=== PATIENT | female | born 1995 | race Caucasian/White ===

== ENCOUNTER 2016-11-12 04:01 | Emergency (ER) | payer SELFPAY ==
[2016-11-12] MEDS ORDERED: Ketorolac Tromethamine 30 MG/ML VIAL ONE (04:28)
[2016-11-12] MEDS ORDERED: Ondansetron HCl/PF 4 MG/2 ML Vial ONE (04:28)
[2016-11-12 04:57] LABS: Amphetamine Not Detected (NotDetected); Barbiturates Screen Not Detected (NotDetected); Benzodiazepine Screen Not Detected (NotDetected); Cocaine Metabolite Screen Not Detected (NotDetected); Medtox Control Line Valid? VALID (VALID); Methadone Not Detected (NotDetected); Methamphetamine Not Detected (NotDetected); Opiate Screen Not Detected (NotDetected); Oxycodone Screen Not Detected (NotDetected); Phencyclidine (PCP) Not Detected (NotDetected); Pregnancy Test - Urine (BHCG) Negative (Negative); Pregu Control Background? CLEAR/WHITE (CLR/WHITE); Pregu Control Bar Appear? YES (CONTROL BAR); THC/Cannabinoid Screen Not Detected (NotDetected); Tricyclic Screen Not Detected (NotDetected)
[2016-11-12 04:58] LABS: Bilirubin Negative (Negative); Blood, Urine Negative (Negative); Clarity Cloudy (Clear); Glucose, Urine (Dipstick) Negative (Negative); Leukocyte Small (Negative); Nitrite Negative (Negative); Protein, Urine (Dipstick) Negative (Neg-Trace); Urobilinogen 0.2 mg/dL (0.2-1.0); pH, Urine 5.5 (5.0-9.0)
[2016-11-12 04:59] LABS: Bacteria/HPF 3+ HPF (None Seen); RBC/HPF 0-3 HPF (0-3); WBC/HPF 21-50 HPF (0-3); Yeast-All Forms 3+ HPF (None Seen)
[2016-11-12] MEDS ORDERED: cefTRIAXone\\ROCEPHIN 1 GM VIAL ONE (05:10)
[2016-11-12 05:13] LABS: #Basophils 0.1 thou/uL (0.0-0.2); #Eosinphils 0.2 thou/uL (0.0-0.7); #Monocytes 0.7 thou/uL (0.11-0.59); #Neutrophils 10.8 thou/uL (1.40-6.50); %Basophils 0.8 % (0.0-1.0); %Eosinophils 1.1 % (0.0-10.0); %Lymphocytes 20.5 % (21.0-51.0); %Monocytes 4.6 % (0.0-10.0); %Neutrophils 73.1 % (42.0-75.0); Hemoglobin 15.4 g/dL (12.0-16.0); Mean Corpuscular Volume 85.4 fl (81.0-99.0); Mean Platelet Volume 6.6 fL (7.4-10.4); Platelet Count 377 thou/uL (130-400); RBC Distribution Width 12.2 % (11.5-14.5); Red Blood Cell (RBC) Count 5.31 mill/uL (4.20-5.40); White Blood Cell (WBC) Count 14.8 thou/uL (4.8-10.8)
[2016-11-12 05:17] LABS: ALT (SGPT) 49 U/L (8-55); AST (SGOT) 31 U/L (5-34); Albumin 4.4 g/dL (3.5-5.0); Alkaline Phosphatase 74 U/L (40-150); Anion Gap 16 mmol/L (10-20); BUN (Urea Nitrogen) 10 mg/dL (7.0-18.7); Bilirubin, Total 0.9 mg/dL (0.2-1.2); Calc. Creatinine Clearance 0 mL/min (70-130); Calcium 9.6 mg/dL (7.8-10.44); Carbon Dioxide 21 mmol/L (22-29); Chloride 105 mmol/L (98-107); Estimated GFR-MDRD Greater than 90; Globulin 3.9 g/dL (2.4-3.5); Glucose 105 mg/dL (70-105); Lipase 9 U/L (8-78); Potassium 4.1 mmol/L (3.5-5.1); Protein, Total 8.3 g/dL (6.0-8.3); Sodium 138 mmol/L (136-145)
[2016-11-12] MEDS ORDERED: Sodium Chloride 0.9% 1,000 ML BAG ONE (08:49)
--- NOTE | 2016-11-12 16:14 | CT ---
PRELIMINARY REPORT/[facility]/EMERGENCY AFTER HOURS PROCEDURE: EXAM: CT Abdomen and Pelvis Without Intravenous Contrast CLINICAL HISTORY: 20 years old, female; Pain; Abdominal pain; Localized; Right lower quadrant (rlq) TECHNIQUE: Axial computed tomography images of the abdomen and pelvis without intravenous contrast. Coronal reformatted images were created and reviewed. COMPARISON: No relevant prior studies available. FINDINGS: Lower thorax: No acute findings. ABDOMEN: Liver: Hepatic steatosis. Gallbladder and bile ducts: Unremarkable. Pancreas: Normal. Spleen: Normal. Adrenals: Normal. Kidneys and ureters: Normal. No obstructing stones. No hydronephrosis. Stomach and bowel: Unremarkable. No obstruction. Appendix: Suture suggestive of appendectomy. PELVIS: Bladder: Unremarkable. Reproductive: 5.1 x 8.4 cm cystic structure along the anterior aspect of the uterus adjacent to the right ovary ABDOMEN and PELVIS: Intraperitoneal space: No free air. No significant fluid collection. Bones/joints: Unremarkable. No acute fracture. Soft tissues: Unremarkable. Vasculature: Unremarkable. Lymph nodes: Unremarkable. No enlarged lymph nodes. IMPRESSION: 1. No acute intra-abdominal findings. 2. Approximately 8 cm presumed right ovarian or paraovarian cystic lesion in the pelvis. Followup ul trasound is suggested, in 6 or 10 weeks to assess for resolution. Thank you for allowing us to participate in the care of your patient. Dictated and Authenticated by: Luis Almeida MD 11/12/2016 5:55 AM Central Time ([place] \T\ [place]) FINAL REPORT NONCONTRAST ENHANCED CT IMAGES ABDOMEN AND PELVIS: HISTORY: A 20-year-old with a history of abdominal pain. FINDINGS: Final report. Preliminary exam was performed by [facility]. The lung bases are unremarkable . No evidence of free intraperitoneal air seen. No evidence of renal calculi seen. The liver and spleen are unremarkable. Adrenal glands unremarkable. The pancreas is unremarkable. Right ovarian cyst or cystic lesion is seen. Correlate with sonography electively and followup sonography to con firm resolution. No evidence of obvious calcification seen. No other significant abnormalities not ed. I concur with the dictation from [facility]. POS: [facility]
== END 2016-11-12 06:10 | disposition home or self-care (01) ==
LOC: MADERS 04:01
DX: N83.201 Unspecified ovarian cyst, right side (principal); N39.0 Urinary tract infection, site not specified
CPT/HCPCS: 36415; 74176; 80053; 80306; 81003; 81015; 81025; 83690; 85025; 87086; 96374; 96375; J0696; J1885; J2405; J7050